=== PATIENT | male | born 1945 | race Caucasian/White ===

== ENCOUNTER → 2018-06-17 | Outpatient (CLI) | payer OTHER ==
--- NOTE | 2018-06-17 13:58 | RAD ---
EXAM: Scrotal sonogram. HISTORY: Right groin pain. TECHNIQUE: Del Castillo scale and color Doppler sonographic imaging of the scrotum with spectral waveform analysis was performed. COMPARISON: None. FINDINGS: The right testis measures 2.7 x 3.0 x 2.1 cm. The left testis measures 3.0 x 2.7 x 1.9 cm. No focal testicular parenchymal lesion is seen. There is normal symmetric blood flow within both testes. The epididymides are unremarkable. There are moderate bilateral hydroceles. There is a right inguinal hernia containing peristalsing bowel, measuring 6.6 cm in maximum dimension. IMPRESSION: 1. Moderate bilateral hydroceles. 2. Right internal hernia containing peristalsing bowel. Electronically signed by: Josseline Holm MD (06/17/2018 1:55 PM) [facility] [place]
== END | disposition home or self-care (01) ==
LOC: US 11:36
DX: N43.2 Other hydrocele (principal); K45.8 Other specified abdominal hernia without obstruction or gangrene
CPT/HCPCS: 76870